=== PATIENT | female | born 1960 | race Asian ===

== ENCOUNTER 2022-08-03 12:18 | Emergency (ER) | payer OTHER ==
[~2022-08-03] VITALS: Ht 162.6 cm; Wt 70.5 kg
[2022-08-03] MEDS ORDERED: ALEN5TAB11 PO (12:29)
[2022-08-03] MEDS ORDERED: ANAS1TAB50 PO (12:29)
[2022-08-03] MEDS ORDERED: KETOROLAC TROMETHAMINE 30 MG/ML VIAL IM ONE (16:00)
[2022-08-03] MEDS ORDERED: LIDOCAINE 5% TRANSDERMAL PATCH TD ONE (16:00)
[2022-08-03] MEDS ORDERED: BACLOFEN 10 MG TABLET PO ONE (16:00)
[2022-08-03] MEDS ORDERED: ALEN70TA80 PO (16:08)
[2022-08-03] MEDS ORDERED: BACL10TA PO (17:01)
[2022-08-03] MEDS ORDERED: LIDO700A15 TP (17:01)
[2022-08-03] MEDS ORDERED: IBUP-1492 PO (17:02)
[2022-08-03 17:30] VITALS: BP 126/77
== END 2022-08-03 17:55 | disposition home or self-care (01) ==
LOC: EMS 12:27
DX: M25.512 Pain in left shoulder (principal); Z98.890 Other specified postprocedural states
CPT/HCPCS: 99283; 96372; J1885